=== PATIENT | female | born 1995 | race Caucasian/White ===

== ENCOUNTER 2022-12-08 21:43 | Emergency (ER) | payer MEDICAID, SELFPAY ==
[2022-12-08 21:52] VITALS: BP 130/72; PULSE 83; RESP 16; TEMP 37.2; O2SAT 100; BMI 25.8
--- NOTE | 2022-12-08 22:11 | ED_ITS ---
HPI - Abdominal Pain General: Chief Complaint: Abdominal Pain Stated Complaint: Abd pain Time Seen by Provider: 12/08/22 21:46 Source: patient Mode of arrival: ambulatory Limitations: no limitations History of Present Illness: 27-year-old female states she is currently 13 weeks she states she has been having some lower abdominal cramping over the last 2 days it worsened today she denies any bleeding denies any discharge she denies any vomiting or diarrhea. Associated Symptoms: Denies chills, diarrhea, dysuria, fever(s), nausea and vomiting Review of Systems Const: Denies: fever(s), chills, body aches or change in appetite ENMT: Denies: throat pain or dental pain Card: Denies: chest pain Resp: Denies: dyspnea GI: Reports: abdominal pain; Denies: nausea, vomiting or diarrhea : Denies: dysuria Musc: Denies: neck pain or back pain Skin/Breast: Denies: rash Neuro: Denies: headache(s) Physical Exam Const: COMMON NORMALS: no acute distress, patient oriented x3 and healthy appearing HENMT: COMMON NORMALS: normocephalic and atraumatic HEAD & SCALP: norm ocephalic and atraumatic Neck/C-Spine: COMMON NORMALS: full ROM and supple Chest: COMMONS NORMALS: normal inspection of the chest and normal palpation of entire chest wall Resp: COMMON NORMALS: normal respiratory effort, No retractions, No use of accessory muscles and clear to auscultation bilaterally AUSCULTATION: clear to auscultation bilaterally Cardio: COMMON NORMALS: regular rate, regular rhythm and No murmurs present (Cardio) RATE: regular rate RHYTHM: regular rhythm GI: COMMON NORMALS: Normal to inspection, nondistended, normoactive bowel sounds present, Soft to palpation, non-tender and no masses PALPATION: Yes Soft to palpation Extremity: COMMON NORMALS: normal to inspection and full ROM Neuro: COMMON NORMALS: patient oriented x3, moves all extremities and no focal motor deficits Psych: COMMON NORMALS: mental status grossly normal, Normal thought process present and cooperative THOUGHT PROCESS: Normal thought process present Skin: COMMON NORMALS: no rashes or lesions noted and no wounds GENERAL SKIN EXAM: no rashes or lesions noted Course Vital Signs: Vital signs: Vital Signs Temperature 99.0 F 12/08/22 21:52 Pulse Rate 83 12/08/22 21:52 Respiratory Rate 16 12/08/22 21:52 Blood Pressure 130/72 12/08/22 21:52 Pulse Oximetry 100 12/08/22 21:52 Oxygen Delivery Me thod Room Air 12/08/22 21:52 MDM - Abdominal Pain Medical Decision Making Patient presents here with abdominal pain in likely round ligament pain her abdominal exam is benign no signs appendicitis she does have a UTI as well I did a bedside ultrasound showed IUP consistent with dates heart rate 156 we will prescribe her Keflex she is to follow-up with her OB she is return if worsening she understands agrees to plan. Medical Records I reviewed the patient's medical records. Lab Data I reviewed the patient's lab results. 12/08/22 22:14 12/08/22 22:14 Labs/Radiology: Laboratory Results WBC 7.87 10^3/uL (3.29-11.43) 12/08/22 22:14 RBC 4.46 10^6/uL (3.85-5.65) 12/08/22 22:14 Hgb 7.30 g/dL (11.27-16.99) L 12/08/22 22:14 Hct 27.4 % (36-47) L 12/08/22 22:14 MCV 61.4 fl (85-98) L 12/08/22 22:14 MCH 16.4 pg (27-33) L 12/08/22 22:14 MCHC 26.6 g/dL (30-55) L 12/08/22 22:14 RDW 22.5 % (12.1-15.1) H 12/08/22 22:14 Plt Count 247 10^3/cmm (157-399) 12/08/22 22:14 MPV 9.7 fL (7.4-10.4) 12/08/22 22:14 Neut % (Auto) 64.3 % 12/08/22 22:14 Lymph % (Auto) 23.6 % 12/08/22 22:14 [place] % (Auto) 9.3 % 12/08/22 22:14 Eos % (Auto) 2.0 % 12/08/22 22:14 Baso % (Auto) 0.4 % 12/08/22 22:14 Neut # (Auto) 5.06 10^3/uL (1.8-7.7) 12/08/22 22:14 Lymph # (Auto) 1.9 10^3/uL (0.8-4.8) 12/08/22 22:14 [place] # (Auto) 0.7 10^3/uL (0.2-0.9) 12/08/22 22:14 Eos # (Auto) 0.2 10^3/uL (0.0-0.8) 12/08/22 22:14 Baso # (Auto) 0.0 10^3/uL (0.0-0.1) 12/08/22 22:14 Nucleated RBC % (auto) 0 % 12/08/22 22:14 Nucleated RBCs # 0.0 /100WBC 12/08/22 22:14 Sodium 138 mmol/L (136-145) 12/08/22 22:14 Potassium 3.6 mmol/L (3.5-5.1) 12/08/22 22:14 Chloride 105 mmol/L (98-107) 12/08/22 22:14 Carbon Dioxide 23 mmol/L (22-29) 12/08/22 22:14 Anion Gap 13.6 (5-19) 12/08/22 22:14 BUN 7 mg/dL (6-20) 12/08/22 22:14 Creatinine 0.3 mg/dL (0.5-0.9) L 12/08/22 22:14 GFR Calculation 268.9 mL/min (90-130) H 12/08/22 22:14 Glucose 84 mg/dL (65-115) 12/08/22 22:14 Calculated Osmolality 283 mOsm/kg (285-295) L 12/08/22 22:14 Calcium 8.7 mg/dL (8.5-10.5) 12/08/22 22:14 Total Bilirubin 0.4 mg/dL (0.15-1.2) 12/08/22 22:14 AST 9 U/L (0-32) 12/08/22 22:14 ALT 6 U/L (0-33) 12/08/22 22:14 Alkaline Phosphatase 45 U/L (35-105) 12/08/22 22:14 Total Protein 6.6 g/dL (6.6-8.7) 12/08/22 22:14 Albumin 4.1 g/dL (3.5-5.2) 12/08/22 22:14 Globulin 2.5 g/dL (1.3-4.6) 12/08/22 22:14 Lipase 21 U/L (13-60) 12/08/22 22:14 HCG, Qual Positive (Negative) H 12/08/22 22:14 Urine Color Yellow (Yellow) 12/08/22 22:27 Urine Appearance Sl hazy (CLEAR) A 12/08/22 22:27 Urine pH 5 (5-7) 12/08/22 22:27 Ur Specific [place] 1.020 (1.005-1.030) 12/08/22 22:27 Urine Protein Neg (Negative) 12/08/22 22:27 Urine Glucose (UA) Norm (Normal) 12/08/22 22:27 Urine Ketones 1+ (Negative) H 12/08/22 22:27 Urine Blood Neg (Negative) 12/08/22 22:27 Urine Nitrate Negative (Negative) 12/08/22 22:27 Urine Bilirubin Neg (Negative) 12/08/22 22:27 Urine Urobilinogen Neg mg/dL (Negative) 12/08/22 22:27 Ur Leukocyte Esterase 2+ (Negative) H 12/08/22 22:27 Urine RBC None /hpf (0-2) 12/08/22 22:27 Urine WBC 10-15 /hpf (0-5) H 12/08/22 22:27 Ur Squamous Epith Cells 15-25 /hpf (0-5) H 12/08/22 22:27 Amorphous Sediment Not Reportable 12/08/22 22:27 Urine Bacteria 2+ /hpf (NONE) H 12/08/22 22:27 Urine Mucus 2+ /hpf 12/08/22 22:27 No radiology studies performed this visit Discharge Plan Discharge Patient Disposition: Home Clinical Impression: Abdominal pain affecting , Acute cystitis Condition: Stable Prescriptions: New cephalexin 500 mg capsule 500 mg PO TID 7 Days Qty: 21 0RF Discharge Orders: Discharge ED (Routine); Ordered 12/08/22 Ordered By: Mark Dumas Referrals: Ivone Hooper CUT OUT MARKER [Primary Care Provider] - 1-3 days Discharge Diet: Advance as tolerated Discharge Activity: Resume usual activity Patient Instructions: Urinary Tract Infection in (ED) Coding Level of Care Code ED Fashion Buying Internship for Sammie Dawson
[2022-12-08 22:19] LABS: Basophils % 0.4 %; Eosinophils # 0.2 10^3/uL (0.0-0.8); Hematocrit 27.4 % (36-47); Lymphocytes # 1.9 10^3/uL (0.8-4.8); Lymphocytes % 23.6 %; Mean Corpuscular HGB Conc 26.6 g/dL (30-55); Mean Corpuscular Hemoglobin 16.4 pg (27-33); Mean Corpuscular Volume 61.4 fl (85-98); Mean Platelet Volume 9.7 fL (7.4-10.4); Monocytes # 0.7 10^3/uL (0.2-0.9); Monocytes % 9.3 %; Neutrophils # 5.06 10^3/uL (1.8-7.7); Neutrophils % 64.3 %; Nucleated Red Blood Cells % 0 %; Platelet Count 247 10^3/cmm (157-399); Red Blood Count 4.46 10^6/uL (3.85-5.65); Red Cell Distribution Width 22.5 % (12.1-15.1); White Blood Count 7.87 10^3/uL (3.29-11.43)
[2022-12-08] MEDS: sodium chloride 0.9% 1,000 ML 999 ML IV (22:35)
[2022-12-08 22:36] LABS: Alanine Aminotransferase 6 U/L (0-33); Albumin Level 4.1 g/dL (3.5-5.2); Alkaline Phosphatase 45 U/L (35-105); Anion Gap 13.6 (5-19); Aspartate Amino Transferase 9 U/L (0-32); Blood Urea Nitrogen 7 mg/dL (6-20); Calcium 8.7 mg/dL (8.5-10.5); Carbon Dioxide 23 mmol/L (22-29); Chloride 105 mmol/L (98-107); Globulin 2.5 g/dL (1.3-4.6); Glomerular Filtration Rate 268.9 mL/min (90-130); Glucose 84 mg/dL (65-115); HCG, Serum Qual Positive (Negative); Lipase 21 U/L (13-60); Osmolality Calculated 283 mOsm/kg (285-295); Potassium 3.6 mmol/L (3.5-5.1); Sodium 138 mmol/L (136-145); Total Bilirubin 0.4 mg/dL (0.15-1.2); Total Protein 6.6 g/dL (6.6-8.7)
[2022-12-08 22:49] LABS: Add Urine Microscopic? YES; Bilirubin Urine Neg (Negative); Blood Urine Neg (Negative); Glucose Urine UA Norm (Normal); Ketones Urine 1+ (Negative); Leukocyte Esterase Urine 2+ (Negative); Nitrate Urine Negative (Negative); Protein Urine Neg (Negative); Urine Appearance SL Hazy (CLEAR); Urine Color Yellow (Yellow); Urobilinogen Urine Neg (Negative); pH Urine 5 (5-7)
[2022-12-08 22:50] LABS: Add Urine Culture? No; Bacteria Urine 2+ /hpf; Mucus Urine 2+ /hpf; Squamous Epithelial Cell Urine 15-25 /hpf (0-5)
[2022-12-08 23:25] VITALS: BP 123/56; PULSE 70; RESP 18; O2SAT 100
== END 2022-12-08 23:29 | disposition home or self-care (01) ==
PROVIDERS: Emergency Provider Emergency Medicine; PCP Nurse Practitioner Family
DX: O23.11 Infections of bladder in pregnancy, first trimester (principal); Z3A.13 13 weeks gestation of pregnancy
CPT/HCPCS: 36415; 80053; 81001; 83690; 84703; 85025; 99284; J7030

== ENCOUNTER 2022-12-29 23:44 | Emergency (ER) | payer MEDICAID, SELFPAY ==
[2022-12-29 23:50] VITALS: BP 125/71; PULSE 83; RESP 20; TEMP 36.6; O2SAT 100; BMI 26.9
--- NOTE | 2022-12-29 23:55 | W.ED.EXTPRO ---
HPI - Extremity Problem General: Chief complaint: Extremity Injury, Lower Stated complaint: Fell, hurt right foot, 16 weeks preg. Time Seen by Provider: 12/29/22 23:49 History of Present Illness: 27-year-old female comes in today with injury to the right foot. Patient reports she was going down some steps and when she stepped after the last roost she turned her foot. Patient since then has had increased pain and discomfort to the foot. Patient appears nontoxic. Patient appears in mild pain at rest. Review of Systems General: Reports: 10 or more systems reviewed and unremarkable except in HPI and below Musc: Reports: extremity pain Physical Exam Const: COMMON NORMALS: alert HENMT: COMMON NORMALS: normocephalic HEAD & SCALP: normocephalic MOUTH: Normal oral and palatal mucosa present Neck/C-Spine: COMMON NORMALS: full ROM Resp: COMMON NORMALS: normal respiratory effort Cardio: COMMON NORMALS: regular rate RATE: regular rate Extremity: RIGHT LOWER EXTREMITY: Yes foot & digits (Dorsal tenderness, no bruising, minimal to no swelling) Neuro: SENSORIUM/ORIENTATION: Yes alert Skin: COMMON NORMALS: turgor normal GENERAL SKIN EXAM: turgor normal Course Vital Signs: Vital signs: Vital Signs Temperature 98 F 12/29/22 23:50 Pulse Rate 83 12/29/22 23:50 Respiratory Rate 20 H 12/29/22 23:50 Blood Pressure 125/71 12/29/22 23:50 Pulse Oximetry 100 12/29/22 23:50 MDM - Extremity (Nontraumatic) Medical Decision Making 27-year-old female comes in today with injury to the right foot. On exam patient has dorsal tenderness, no obvious swelling or bruising noted. Cap refill is intact. Normal sensation. Differential diagnosis includes fracture, sprain, contusion. Due to patient being in the first trimester of she refused x-ray of foot. Recommended good supportive shoe, elastic bandage, acetaminophen for pain. Recommended the use of crutches until she can bear weight comfortably. Recommended follow-up with primary care or specialist in 1 week for further evaluation for persistent symptoms. Patient reported understanding agreed to plan. No radiology studies performed this visit Discharge Plan Discharge Patient Disposition: Home Clinical Impression: Foot sprain Qualifiers: Encounter type: initial encounter Laterality: right Qualified Code(s): S93.601A - Unspecified sprain of right foot, initial encounter Condition: Stable Discharge Orders: Discharge ED (Routine); Ordered 12/30/22 Ordered By: Rusty Barry Referrals: Ivone Hooper APN [Primary Care Provider] - Discharge Diet: Usual diet Discharge Activity: Increase activity as tolerated Patient Instructions: Foot Sprain (ED) Activity Restrictions/Additional Instructions: Home and rest. Elevate foot is much as possible for the first 48 hours. Use an elastic bandage and a good supportive shoe. Use crutches until he can bear weight comfortably. Use acetaminophen as needed for pain. Use ice packs for further pain relief. Talk to your BOX PRESS OPERATOR about the use of ibuprofen. Follow-up with primary care in 1 week for recheck. Most people after 3 to 4 days are able to start bearing weight to the extremity with some discomfort but without crutches. If you note no pain improvement within 1 week an x-ray should be performed for evaluation of fracture. Follow-up with primary care or retail account specialist of choice. Coding Level of Care Code ED Electrician Crane Maintenance for Sammie Dawson
[2022-12-30 00:22] VITALS: BP 109/65; PULSE 86; RESP 17; O2SAT 100
== END 2022-12-30 00:25 | disposition home or self-care (01) ==
PROVIDERS: Emergency Provider Nurse Practitioner Family; PCP Nurse Practitioner Family
DX: O9A.212 Injury, poisoning and certain other consequences of external causes complicating pregnancy, second trimester (principal); S93.601A Unspecified sprain of right foot, initial encounter; Z3A.16 16 weeks gestation of pregnancy; X50.1XXA Overexertion from prolonged static or awkward postures, initial encounter
CPT/HCPCS: 99283

== ENCOUNTER 2023-04-23 21:38 | Emergency (ER) | payer MEDICAID, SELFPAY ==
[2023-04-23 21:42] VITALS: BP 108/63; PULSE 99; RESP 18; TEMP 37.2; O2SAT 100; BMI 28.0
--- NOTE | 2023-04-23 22:12 | XRR_ITS ---
PROCEDURE INFORMATION: Exam: XR Chest Exam date and time: 04/23/2023 10:15 PM Age: 28 years old Clinical indication: Cough and fever and shortness of breath; Patient HX: Cough with SOB and fever. Exposure to flu a. ; Additional info: SOB, cough, fever TECHNIQUE: Imaging protocol: Radiologic exam of the chest. Views: 1 view. COMPARISON: No relevant prior studies available. FINDINGS: Lungs: Unremarkable. No consolidation. Pleural spaces: Large left pneumothorax with approximately 5.2 cm separation between the lung and pleura. Heart/Mediastinum: Unremarkable. No cardiomegaly. Bones/joints: Unremarkable. XR/XR chest 1V portable [id number] IMPRESSION: Large left pneumothorax with approximately 5.2 cm separation between the lung and pleura.
[2023-04-23 22:49] LABS: Influenza A by IFA positive (Negative); Influenza B by IFA negative (Negative)
[2023-04-23 23:08] VITALS: BP 126/66; PULSE 97; RESP 20; O2SAT 98
[2023-04-23 23:12] LABS: Basophils % 0.4 %; Eosinophils % 0.2 %; Hematocrit 40.5 % (36-47); Lymphocytes # 0.6 10^3/uL (0.8-4.8); Lymphocytes % 10.1 %; Mean Corpuscular HGB Conc 33.8 g/dL (30-55); Mean Corpuscular Hemoglobin 29.8 pg (27-33); Mean Corpuscular Volume 88.2 fl (85-98); Mean Platelet Volume 10.6 fL (7.4-10.4); Monocytes # 0.6 10^3/uL (0.2-0.9); Monocytes % 11.5 %; Neutrophils % 77.3 %; Nucleated Red Blood Cells % 0 %; Platelet Count 167 10^3/cmm (157-399); Red Blood Count 4.59 10^6/uL (3.85-5.65); White Blood Count 5.56 10^3/uL (3.29-11.43)
[2023-04-23] MEDS: sodium chloride 0.9% 1,000 ML 999 ML IV (23:17)
[2023-04-23] MEDS: ondansetron 2 mg/ML SDV 2 mL 4 MG IVP (23:17)
[2023-04-23] MEDS: lidocaine 1% INJ 10 mL (per mL) 20 ML INJECTION (23:17)
--- NOTE | 2023-04-23 23:25 | PC.NURSE ---
chest tube insertion 2320: timeout: pt- myranda gustafson, - 1995, procedure- chest tube insertion 2323: 10 mg propofol administered IVP 232: pt placed on 2 L NC 232: 10 mg propofol administered IVP 232: dr lloyd administering 10 mL lidocaine 1% into pts left chest 2327: 20 mg propofol administered IVP 2328: 20 mg propofol administered IVP 2329: 40 mg propofol administered IVP 2330: 20 mg propofol administered IVP 233: dr lloyd administering 10 mL lidocaine 1% into pts left chest 2330: dr lloyd making incision in pts left chest 2330: current vs: hr 99, O2 81, bp 96/56, rr 18 2331: dr lloyd inserting clamp 2331: dr lloyd gave verbal confirmation of placement 2332: 20 mg propofol administered IVP 233: dr lloyd inserting 12 fr chest tube into pts left chest 2333: dr lloyd suturing tube into pts left chest 2335: current vs: hr 94, O2 95, bp 123/74, rr 29 2337: dr lloyd attaching pt to suction 2339: chest tube attached to drainage and bubbling 2342: confirming xray placement 2343: xray placement confirmed 2345: current vs: hr 93, O2 98, bp 128/74, rr 22 2346: gina RN placing vaseline gauze around chest tube 2347: gina RN placing foam tape around chest tube 2350: current vs: hr 90, O2 100, bp 124/70, rr 19 2355: current vs: hr 89, O2 100, bp 117/59, rr 18 OB nurses present and monitoring status of baby through entire procedure. no issues during procedure. respiratory present and monitoring pt through entire procedure.
[2023-04-23 23:28] LABS: Alanine Aminotransferase 26 U/L (0-33); Alkaline Phosphatase 93 U/L (35-105); Aspartate Amino Transferase 35 U/L (0-32); Blood Urea Nitrogen 6 mg/dL (6-20); Calcium 8.8 mg/dL (8.5-10.5); Carbon Dioxide 21 mmol/L (22-29); Chloride 97 mmol/L (98-107); Globulin 3.4 g/dL (1.3-4.6); Glucose 85 mg/dL (65-115); Osmolality Calculated 271 mOsm/kg (285-295); Sodium 132 mmol/L (136-145); Total Bilirubin 0.4 mg/dL (0.15-1.2); Total Protein 7.4 g/dL (6.6-8.7)
[2023-04-23] MEDS: propofol 10 mg/mL SDV 20 mL 150 MG IVP (23:31)
--- NOTE | 2023-04-23 23:48 | XRR_ITS ---
PROCEDURE INFORMATION: Exam: XR Chest Exam date and time: 04/23/2023 11:42 PM Age: 28 years old Clinical indication: Device placement; Patient HX: Check S/P left chest tube placement TECHNIQUE: Imaging protocol: Radiologic exam of the chest. Views: 1 view. COMPARISON: CR (CHEST, ) 04/23/2023 10:15 PM FINDINGS: Lungs: Unremarkable. No consolidation. Pleural spaces: Left superiorly directed chest tube, negative for residual pneumothorax. Heart/Mediastinum: Unremarkable. No cardiomegaly. Bones/joints: Unremarkable. Soft tissues: Left thorax subcutaneous emphysema. XR/XR chest 1V portable [id number] IMPRESSION: 1. Left superiorly directed chest tube, negative for residual pneumothorax. 2. Left thorax subcutaneous emphysema.
--- NOTE | 2023-04-23 23:54 | ED_ITS ---
HPI - Fever 2 General: Chief Complaint: Fever Stated Complaint: Flue Like Symptoms Time Seen by Provider: 04/23/23 21:49 History of Present Illness: Healthy 28-year-old female who is 32 weeks . She presents with cough, shortness of breath, and left-sided chest pressure. She has had most of the symptoms since Monday. She was seen at primary care office, and placed on Augmentin at that point. Today, she woke up with a significant fever. Her is flu a positive. She has developed chest pressure over time today that has worsened. No vomiting. Associated symptoms: Reports chills, chest pain and nausea; Deny abdominal pain or vomiting Review of Systems 2 Const: Reports: fever(s) and chills ENMT: Reports: throat pain Card: Reports: chest pain; Denies: palpitations Resp: Reports: dyspnea and non-productive cough GI: Reports: nausea; Denies: abdominal pain or vomiting Physical Exam 2 Const: GENERAL APPEARANCE: cooperative and ill appearing HENMT: COMMON NORMALS: normocephalic, atraumatic and Normal external nose present HEAD & SCALP: normocephalic and atraumatic FACE & SINUS: normal facial exam and face symmetric NOSE: Normal external nose present and Normal nares present Eye: COMMON NORMALS: Equal, round and reactive pupils present and EOMs intact bilaterally PUPIL: Yes Equal, round and reactive pupils present Neck/C-Spine: GENERAL: Yes trachea midline Chest: CHEST: Yes Symmetrical chest wall rise Resp: COMMON NORMALS: normal respiratory effort, No use of accessory muscles and clear to auscultation bilaterally AUSCULTATION: clear to auscultation bilaterally Cardio: COMMON NORMALS: regular rate and regular rhythm RATE: regular rate RHYTHM: regular rhythm GI: COMMON NORMALS: Normal to inspection, nondistended, normoactive bowel sounds present Extremity: COMMON NORMALS: no pedal edema Neuro: ALAN COMA SCALE: document GCS findings Alan coma scale eye opening: Spontaneous Alan coma scale verbal response: Orientated [place] coma scale motor response: Obey commands [place] coma scale total score: 15 Procedures Chest Tube Chest Tube 1: Chest Tube Location: left Size of Tube (cm): 12 (swiss) Chest Tube Prep: Yes betadine prep and sterile drapes applied Local Anesthetic: lidocaine 1% Amount of anesthesia used (mL): 15 Incision Made With: #10 blade Post Procedure: sutured to skin and sterile dressing applied Tube Drainage: other (air) Post Procedure CXR?: Yes Patient Tolerated Procedure: Yes Procedural Sedation Indication: other (chest tube placement) ASA Class: II Preparation: property assessment monitor applied, pulse oximeter, supplemental O2 applied, suction/airway equipment at bedside and IV secured IV Propofol dose (mg): 150 Patient Tolerated Procedure: well and no complications Complications: none Course 2 Vital Signs: Vital signs: Vital Signs Temperature 99 F 04/23/23 21:42 Pulse Rate 100 04/24/23 00:46 Respiratory Rate 19 H 04/24/23 00:46 Blood Pressure 118/61 04/24/23 00:46 Pulse Oximetry 100 04/24/23 00:46 Oxygen Delivery Me thod Room Air 04/24/23 00:34 MDM - Fever Medical Decision Making Patient maintained normal blood pressure, and saturations. X-ray, performed because of shortness of breath and chest pressure revealed at least 50% pneumothorax. It appeared simple. Chest tube was placed without complication. Because of the size of pneumothorax, a 12 Malay chest tube was actually placed in the midaxillary line in traditional position. She tolerated the procedure without complication. heart tones were monitored by OB throughout the procedure, with no episodes of bradycardia. Propofol was used for mild conscious sedation. No problems with hypoxia or hypotension during the procedure. Repeat chest x-rayShows complete resolution of pneumothorax with a superiorly directed chest tube. We have no pulmonology, chest surgery, or intensive care physicians at this facility to manage the chest tube. I spoke with [facility], and while they are very tight on beds, they have accepted her to the ER. She will go by ground if possible. Lab Data 04/23/23 23:00 04/23/23 23:00 Radiology Impressions Chest X-Ray 04/23/23 23:48 IMPRESSION: 1. Left superiorly directed chest tube, negative for residual pneumothorax. 2. Left thorax subcutaneous emphysema. Laboratory Results WBC 5.56 10^3/uL (3.29-11.43) 04/23/23 23:00 RBC 4.59 10^6/uL (3.85-5.65) 04/23/23 23:00 Hgb 13.70 g/dL (11.27-16.99) 04/23/23 23:00 Hct 40.5 % (36-47) 04/23/23 23:00 MCV 88.2 fl (85-98) 04/23/23 23:00 MCH 29.8 pg (27-33) 04/23/23 23:00 MCHC 33.8 g/dL (30-55) 04/23/23 23:00 RDW 15.0 % (12.1-15.1) 04/23/23 23:00 Plt Count 167 10^3/cmm (157-399) 04/23/23 23:00 MPV 10.6 fL (7.4-10.4) H 04/23/23 23:00 Neut % (Auto) 77.3 % 04/23/23 23:00 Lymph % (Auto) 10.1 % 04/23/23 23:00 [place] % (Auto) 11.5 % 04/23/23 23:00 Eos % (Auto) 0.2 % 04/23/23 23:00 Baso % (Auto) 0.4 % 04/23/23 23:00 Neut # (Auto) 4.30 10^3/uL (1.8-7.7) 04/23/23 23:00 Lymph # (Auto) 0.6 10^3/uL (0.8-4.8) L 04/23/23 23:00 [place] # (Auto) 0.6 10^3/uL (0.2-0.9) 04/23/23 23:00 Eos # (Auto) 0.0 10^3/uL (0.0-0.8) 04/23/23 23:00 Baso # (Auto) 0.0 10^3/uL (0.0-0.1) 04/23/23 23:00 Nucleated RBC % (auto) 0 % 04/23/23 23:00 Nucleated RBCs # 0.0 /100WBC 04/23/23 23:00 Sodium 132 mmol/L (136-145) L 04/23/23 23:00 Potassium 4.0 mmol/L (3.5-5.1) 04/23/23 23:00 Chloride 97 mmol/L (98-107) L 04/23/23 23:00 Carbon Dioxide 21 mmol/L (22-29) L 04/23/23 23:00 Anion Gap 18.0 (5-19) 04/23/23 23:00 BUN 6 mg/dL (6-20) 04/23/23 23:00 Creatinine 0.5 mg/dL (0.5-0.9) 04/23/23 23:00 GFR Calculation 148.0 mL/min (90-130) H 04/23/23 23:00 Glucose 85 mg/dL (65-115) 04/23/23 23:00 Calculated Osmolality 271 mOsm/kg (285-295) L 04/23/23 23:00 Calcium 8.8 mg/dL (8.5-10.5) 04/23/23 23:00 Total Bilirubin 0.4 mg/dL (0.15-1.2) 04/23/23 23:00 AST 35 U/L (0-32) H 04/23/23 23:00 ALT 26 U/L (0-33) 04/23/23 23:00 Alkaline Phosphatase 93 U/L (35-105) 04/23/23 23:00 Total Protein 7.4 g/dL (6.6-8.7) 04/23/23 23:00 Albumin 4.0 g/dL (3.5-5.2) 04/23/23 23:00 Globulin 3.4 g/dL (1.3-4.6) 04/23/23 23:00 Influenza Type A Ag positive (Negative) H 04/23/23 22:20 Influenza Type B Ag negative (Negative) 04/23/23 22:20 Blood Type O Positive 04/23/23 23:00 Rho(D) Type Rh positive 04/23/23 23:00 Antibody Screen Negative 04/23/23 23:00 All radiology interpretation(s) finalized by discharge Discharge Plan Discharge Patient Disposition: Xfer Short-Term Hosp Condition: Stable Referrals: Annie Vasquez FNP [Primary Care Provider] - Coding Level of Care Code ED Swimming Pool Maintenance Supervisor for Sammie Dawson
[2023-04-24] VITALS: RESP 16
[2023-04-24 00:19] VITALS: BP 120/66; PULSE 87; RESP 20; O2SAT 100
[2023-04-24 00:34] VITALS: BP 118/81; PULSE 86; RESP 22; O2SAT 100
[2023-04-24 00:46] VITALS: BP 118/61; PULSE 100; RESP 16; RESP 19; O2SAT 100
[2023-04-24] MEDS: morphine 4 mg/mL SDV 1 mL IVP ×2 (00:46)
== END 2023-04-24 00:46 | disposition short-term general hospital (02) ==
PROVIDERS: Emergency Provider Emergency Medicine; PCP Nurse Practitioner Family
DX: O26.893 Other specified pregnancy related conditions, third trimester (principal); J93.9 Pneumothorax, unspecified; Z3A.32 32 weeks gestation of pregnancy
CPT/HCPCS: 32551; 71045; 80053; 85025; 86850; 86900; 87804; 96374; 96375; 96376; 99285; J2270; J2405; J2704; J7030